=== PATIENT | female | born 1950 | race Caucasian/White ===

== ENCOUNTER 2016-04-24 11:42 | Emergency (ER) | payer MEDICARE, OTHER ==
[2016-04-24 11:46] VITALS: BP 128/68
--- NOTE | 2016-04-24 11:46 | EDM.PDOC ---
ED HPI ENT - General Chief Complaint: ENT Problem Stated Complaint: SORE THROAT Time Seen by Provider: 04/24/16 11:46 Source of Information: Reports: Patient, Family History Limitations: Reports: No limitations - History of Present Illness INITIAL COMMENTS - FREE TEXT/NARRATIVE: in with c/o sore throat and sinus congestion x 1 week was seen in [place] last week for same and is no better, no fever or chills, no cp or sob, no neck/back pain or stiffness, no ear sx, no abd pain, no nvdc, no rash Severity: mild Location: Reports: throat Quality: Reports: Ache Improves with: Reports: None Worsens with: Reports: Other (swallowing) Associated Symptoms: Denies: confusion, shortness of breath, weakness, chest pain, cough, fever/chills, nausea/vomiting, rash Treatments 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 Denies: fever, chills HEENT: Reports: Sinus problem, Throat pain. Denies: Ear discharge, Eye pain, Vertigo Respiratory: Reports: cough. Denies: shortness of breath Cardiovascular: Reports: No symptoms. Denies: Chest pain Endocrine: Reports: no symptoms GI/Abdominal: Reports: No symptoms. Denies: Abdominal pain, Nausea, Vomiting : Reports: no symptoms Musculoskeletal: Reports: no symptoms. Denies: neck pain, back pain, muscle pain Skin: Reports: no symptoms. Denies: rash Neurological: Reports: no symptoms Psychiatric: Reports: No symptoms Hematologic/Lymphatic: Reports: no symptoms Immunologic: Reports: no symptoms ED EXAM, ENT - Physical Exam Exam: See Below Exam Limited By: No limitations General Appearance: alert, WD/WN, no apparent distress Ears: normal external exam, normal canal, hearing grossly normal, normal TMs Nose: nasal discharge, nasal tenderness Mouth/Throat: Normal lips. No: Normal oropharynx (injected with drainage) Head: atraumatic, normocephalic Neck: normal inspection, supple, non-tender, full range of motion Respiratory/Chest: no respiratory distress, lungs clear, normal breath sounds Cardiovascular: normal peripheral pulses, regular rate, rhythm, no murmur GI/Abdominal: soft, non tender Back: normal inspection, full range of motion Extremities: normal inspection, normal range of motion, non-tender, no pedal edema, normal capillary refill Neurological: alert, oriented, normal cognition, normal gait, no motor/sensory deficits Psychiatric: normal affect, normal mood Skin: Warm, Dry, Intact, Normal color, No rash Lymphatic: no adenopathy Course - Vital Signs Last Recorded V/S: Last Vital Signs Temp 36.7 C 04/24/16 11:43 Pulse 65 04/24/16 11:43 Resp 16 04/24/16 11:43 BP 128/68 04/24/16 11:43 Pulse Ox 96 04/24/16 11:43 - Orders/Labs/Meds Orders: Active Orders 24 hr Category Date Time Status Dexamethasone Med 04/24/16 12:26 Once 10 mg IM ONETIME ONE cefTRIAXone [Rocephin] Med 04/24/16 12:25 Once 1 gm IM ONETIME ONE Departure - Departure Time of Disposition: 12:26 Disposition: Home, Self-Care 01 Condition: good Clinical Impression: Sinusitis, Pharyngitis Instructions: Sinusitis, Adult, [id number], Pharyngitis, [id number] Forms: ED Department Discharge Additional Instructions: increase fluids see family doctor this week to ER sooner if worse or problems or as needed - Problem List & Annotations (1) Pharyngitis SNOMED Code(s): 661494773 Code(s): J02.9 - ACUTE PHARYNGITIS, UNSPECIFIED Status: Acute Priority: High Onset Date: ~04/24/16 (2) Sinusitis SNOMED Code(s): 06254055 Code(s): J32.9 - CHRONIC SINUSITIS, UNSPECIFIED Status: Acute Priority: High Onset Date: ~04/24/16 Qualifiers: Sinusitis location: maxillary Chronicity: acute - Problem List Review Problem List Initiated/Reviewed/Updated: Yes - My Orders Last 24 Hours: My Active Orders 04/24/16 12:25 cefTRIAXone [Rocephin] 1 gm IM ONETIME ONE 04/24/16 12:26 Dexamethasone 10 mg IM ONETIME ONE - Assessment/Plan Last 24 Hours: My Active Orders 04/24/16 12:25 cefTRIAXone [Rocephin] 1 gm IM ONETIME ONE 04/24/16 12:26 Dexamethasone 10 mg IM ONETIME ONE
[2016-04-24] MEDS ORDERED: cefTRIAXone 1 GM Vial IM ONE (12:25)
[2016-04-24] MEDS ORDERED: Dexamethasone 4 MG/ML SDV IM ONE (12:26)
[2016-04-24] MEDS ORDERED: Lidocaine 1% 20 ML MDV ONE (12:28)
[2016-04-24] MEDS ORDERED: Dexamethasone 4 MG/ML SDV ONE (12:42)
== END 2016-04-24 12:45 | disposition home or self-care (01) ==
LOC: CC.ED 11:42
DX: J02.9 Acute pharyngitis, unspecified (principal); J32.9 Chronic sinusitis, unspecified
CPT/HCPCS: 87430; 96372; 99282; J0696; J1100

== ENCOUNTER 2016-06-29 15:04 | Emergency (ER) | payer MEDICARE, OTHER ==
[~2016-06-29 15:04] MED LIST: Ondansetron 4 MG Tab.DIS PO ONE
[2016-06-29 15:17] VITALS: BP 143/71
[2016-06-29] MEDS ORDERED: Ondansetron 8 MG in Sodium Chloride 0.9% 50 ML IV PRN (15:29)
[2016-06-29] MEDS ORDERED: Lactated Ringers 1,000 ML IV SCH (15:30)
[2016-06-29] MEDS ORDERED: Ondansetron 4 MG/2 ML SDV ONE (15:43)
[2016-06-29 16:04] LABS: CHLORIDE,CL 103 mEq/L (98-106); SODIUM,NA 140 mEq/L (136-145)
--- NOTE | 2016-06-29 17:51 | EDM.PDOC ---
ED HPI GENERAL MEDICAL PROBLEM - General Chief Complaint: General Stated Complaint: N/V, dizziness Time Seen by Provider: 06/29/16 15:55 Source of Information: Reports: Patient, Family History Limitations: Reports: No limitations - History of Present Illness INITIAL COMMENTS - FREE TEXT/NARRATIVE: Woke up this morning nauseated and felt faint. Did try to eat cereal but not much. Was worried that she ate some questionable pizza for last night as she didn't feel that it tasted right. No diarrhea with it. Did have a normal bowel movement today. After initial feeling sick then took a nap and states that she felt better for awhile and then started to get sick again and then complained of severe pain and dry heaves. Did call ambulance and had emesis in the ambulance and also again in the ER. Pain did get better and the nausea slowly improved after getting zofran. Onset: sudden Location: Reports: abdomen Quality: Reports: Sharp Improves with: Reports: Other (vomiting) Associated Symptoms: Reports: fever/chills, nausea/vomiting Abdominal Pain Score (Numeric/FACES): 5 - Related Data Allergies Allergy/AdvReac Type Severity Reaction Status Date / Time No Known Allergies Allergy Verified 06/29/16 15:19 Home Meds: Home Meds Alendronate [Fosamax] 70 mg PO SA 04/24/16 [History] Aspirin [Halfprin] 81 mg PO DAILY 06/29/16 [History] Biest(50-50)/Prog Hrv 1 applic TOP DAILY 06/29/16 [History] Brain Restore 4 tab PO TID 06/29/16 [History] Celepro 2 cap PO BID 06/29/16 [History] Cholecalciferol (Vitamin D3) [Vitamin D3] 1,000 unit PO DAILY 06/29/16 [History] Flaxseed Oil 1 cap PO DAILY 06/29/16 [History] Magnesium 1 tab PO DAILY 06/29/16 [History] Magtein 2 cap PO TID 06/29/16 [History] Mighty Cell 2 cap PO TID 06/29/16 [History] Vitamin B Complex & Vit C No.4 [Super B Complex] 1 tab PO DAILY 06/29/16 [ History] Vitamin B6-pyridOXINE 1 tab PO DAILY 06/29/16 [History] Past Medical History HEENT History: Reports: Allergic rhinitis Cardiovascular History: Reports: High cholesterol Genitourinary History: Reports: Other (see below) Other Genitourinary History: nocturia, hot flashes 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: , Spontaneous Musculoskeletal History: Reports: Arthritis, Osteoporosis Neurological History: Reports: Other (see below) Other Neuro History: frontal lobe disorder Psychiatric History: Reports: Other (see below) Other Psychiatric History: memory loss, history of psychotic episode Endocrine/Metabolic History: Reports: Vitamin D deficiency, Other (see below) Other Endocrine/Metabolic History: thyroid nodule - Past Surgical History Female Surgical History: Reports: Tubal ligation Neurological Surgical History: Reports: None Social & Family History - Family History Family Medical History: Noncontributory - Tobacco Use Smoking Status *Q: Never Smoker - Recreational Drug Use Recreational Drug Use: No ED ROS GENERAL - Review of Systems Review Of Systems: See Below Constitutional: Reports: chills, weakness HEENT: Reports: No symptoms Respiratory: Denies: Shortness of Breath, Cough Cardiovascular: Denies: Chest pain GI/Abdominal: Reports: Abdominal pain, Nausea, Vomiting. Denies: Constipation, Diarrhea : Reports: no symptoms Musculoskeletal: Reports: no symptoms Skin: Reports: no symptoms Neurological: Reports: No Symptoms Psychiatric: Reports: No symptoms ED EXAM, GENERAL - Physical Exam Exam: See Below Exam Limited By: No limitations General Appearance: alert, mild distress Ears: normal external exam, normal canal, normal TMs Ear Exam: bilateral ear: auricle normal, canal normal, TM normal Nose: normal inspection Throat/Mouth: Normal inspection, Normal oropharynx, Normal voice, No airway compromise Head: atraumatic, normocephalic Neck: normal inspection, supple, non-tender, full range of motion Respiratory/Chest: no respiratory distress, lungs clear, normal breath sounds, chest non-tender Cardiovascular: normal peripheral pulses, regular rate, rhythm, no murmur GI/Abdominal: Normal Bowel Sounds, Soft, Non-Tender (Not able to induce any discomfort when examined. She states that the pain went away.), No Organomegaly. No: Guarding, Rebound, Tender Extremities: normal inspection, normal range of motion, non-tender, normal capillary refill Neurological: alert, oriented Psychiatric: normal affect Skin Exam: Warm, Dry, Intact Course - Vital Signs Last Recorded V/S: Last Vital Signs Temp 98.1 F 06/29/16 15:10 Pulse 54 L 06/29/16 15:10 Resp 16 06/29/16 15:10 BP 143/71 H 06/29/16 15:10 Pulse Ox 99 06/29/16 15:10 - Orders/Labs/Meds Orders: Active Orders 24 hr Category Date Time Status Lactated Ringers [Ringers, Lactated] 1,000 ml Med 06/29/16 15:30 Active IV ASDIRECTED Ondansetron [Zofran] 8 mg Med 06/29/16 15:29 Active Sodium Chloride 0.9% [Normal Saline] 50 ml IV Q8H EKG 12 Lead [EK] Routine Ther 06/29/16 15:06 Ordered Medication Orders Lactated Ringer's (Ringers, Lactated) 1,000 mls @ 150 mls/hr IV ASDIRECTED ENRRIQUE Last Admin: 06/29/16 15:54 Dose: 150 mls/hr Ondansetron HCl 8 mg/ Sodium (Chloride) 54 mls @ 100 mls/hr IV Q8H PRN PRN Reason: Nausea Last Admin: 06/29/16 15:57 Dose: 100 mls/hr Labs: Laboratory Tests 06/29/16 06/29/16 06/29/16 Range/Units 15:35 15:35 16:23 WBC 10.9 H (5.0-10.0) 10^3/uL RBC 4.42 (4.00-5.50) 10^6/uL Hgb 13.5 (12.0-16.0) g/dL Hct 40.3 (37.0-47.0) % MCV 91.2 (82.0-94.0) fL MCH 30.5 (27.0-32.0) pg MCHC 33.5 (33.0-38.0) g/dL RDW Coeff of Barb 12.5 (11.0-15.0) % Plt Count 226 (150-400) 10^3/uL Neut % (Auto) 88.3 H (35-85) % Lymph % (Auto) 8.0 L (10-55) % [place] % (Auto) 3.4 (0-16) % Eos % (Auto) 0.1 (0-5) % Baso % (Auto) 0.2 (0-3) % Neut # (Auto) 9.62 H (1.80-7.00) 10^3/uL Lymph # (Auto) 0.87 L (1.00-4.80) 10^3/uL [place] # (Auto) 0.37 (0.00-0.80) 10^3/uL Eos # (Auto) 0.01 (0.00-0.45) 10^3/uL Baso # (Auto) 0.02 10^3/uL Sodium 140 (136-145) mEq/L Potassium 3.9 (3.5-5.0) mEq/L Chloride 103 (98-106) mEq/L Carbon Dioxide 28 (21-32) mmol/L BUN 14 (7-18) mg/dL Creatinine 0.9 (0.6-1.0) mg/dL Est Cr Clr Drug Dosing 48.63 mL/min Estimated GFR (MDRD) > 60 (>=60) mL/min Glucose 145 H D (75-99) mg/dL Calcium 8.5 (8.4-10.1) mg/dL Total Bilirubin 0.5 (0.0-1.0) mg/dL AST 14 L (15-37) U/L ALT 27 (12-78) U/L Alkaline Phosphatase 48 (46-116) U/L Total Protein 7.3 (6.4-8.2) g/dL Albumin 3.8 (3.4-5.0) g/dL Urine Color Yellow (YELLOW) Urine Appearance Slightly cloudy (CLEAR) Urine pH 7.5 (4.5-8.0) Ur Specific [place] 1.023 H (1.003-1.020) Urine Protein 100 H (NEGATIVE) mg/dL Urine Glucose (UA) Negative (NEGATIVE) mg/dL Urine Ketones 40 H (NEGATIVE) mg/dL Urine Occult Blood Negative (NEGATIVE) Urine Nitrite Negative (NEGATIVE) Urine Bilirubin Negative (NEGATIVE) Urine Urobilinogen 1.0 (0.2-1.0) EU/dL Ur Leukocyte Esterase Negative (NEGATIVE) Urine RBC 0-5 (0-5) /HPF Urine WBC Not seen (0-5) /HPF Ur Epithelial Cells Moderate H (NOT SEEN) /HPF Amorphous Sediment Moderate H (NOT SEEN) /HPF Meds: Medications Generic Name Dose Route Start Last Admin Trade Name Freq PRN Reason Stop Dose Admin Lactated Ringer's 1,000 mls @ 150 mls/hr 06/29/16 15:30 06/29/16 15:54 Ringers, Lactated IV 150 mls/hr ASDIRECTED ENRRIQUE Administration Ondansetron HCl 8 mg/ Sodium 54 mls @ 100 mls/hr 06/29/16 15:29 06/29/16 15: 57 Chloride IV 100 mls/hr Q8H PRN Administration Nausea Discontinued Medications Generic Name Dose Route Start Last Admin Trade Name Ja PRN Reason Stop Dose Admin Ondansetron HCl Confirm 06/29/16 15:43 06/29/16 15:56 Zofran Administered 06/29/16 15:44 Not Given Dose 4 mg .ROUTE .[facility] ONE - Re-Assessments/Exams Free Text/Narrative Re-Assessment/Exam: 06/29/16 17:55 In to visit with and pt and she is much improved and discussed normal labs. Will discharge home with Zofran. Departure - Departure Time of Disposition: 17:56 Disposition: Home, Self-Care 01 Condition: good Clinical Impression: Gastroenteritis - Discharge Information Forms: ED Department Discharge Additional Instructions: Slowly restart food and liquids as tolerated Zofran if needed for nausea Avoid milk and milk products until feeling back to normal for 24 hours Recheck if any new concerns noted. - Problem List & Annotations (1) Gastroenteritis SNOMED Code(s): 01086396 Code(s): K52.9 - NONINFECTIVE GASTROENTERITIS AND COLITIS, UNSPECIFIED Status: Acute Priority: High Current Visit: Yes - Problem List Review Problem List Initiated/Reviewed/Updated: Yes - My Orders Last 24 Hours: My Active Orders 06/29/16 15:06 EKG 12 Lead [EK] Routine 06/29/16 15:29 Ondansetron [Zofran] 8 mg Sodium Chloride 0.9% [Normal Saline] 50 ml IV Q8H 06/29/16 15:30 Lactated Ringers [Ringers, Lactated] 1,000 ml IV ASDIRECTED - Assessment/Plan Last 24 Hours: My Active Orders 06/29/16 15:06 EKG 12 Lead [EK] Routine 06/29/16 15:29 Ondansetron [Zofran] 8 mg Sodium Chloride 0.9% [Normal Saline] 50 ml IV Q8H 06/29/16 15:30 Lactated Ringers [Ringers, Lactated] 1,000 ml IV ASDIRECTED
[2016-06-29] MEDS ORDERED: Take Home: Ondansetron 4 MG Tab.DIS, 2 Tab Pack PO ONE (17:58)
== END 2016-06-29 18:40 | disposition home or self-care (01) ==
LOC: CC.ED 15:04
DX: K52.9 Noninfective gastroenteritis and colitis, unspecified (principal); E78.00 Pure hypercholesterolemia, unspecified; Z79.899 Other long term (current) drug therapy
CPT/HCPCS: 36415; 80053; 81001; 85025; 93005; 96361; 96365; 99284; A9270; J2405; J7050; J7120; 93010

== ENCOUNTER 2016-09-05 16:58 | Emergency (ER) | payer MEDICARE, OTHER ==
[~2016-09-05 16:58] MED LIST changes: +traMADol 50 MG Tab PO ONE
[2016-09-05] MEDS ORDERED: Sodium Chloride 0.9% 1,000 ML IV ONE (17:22)
[2016-09-05 17:23] VITALS: BP 120/65
[2016-09-05] MEDS ORDERED: HYDROmorphone 1 MG/ML Syringe IVPUSH ONE (17:23)
[2016-09-05] MEDS ORDERED: Promethazine 12.5 MG in Sodium Chloride 0.9% 50 ML IV ONE (17:24)
[2016-09-05] MEDS ORDERED: Ondansetron 4 MG/2 ML SDV IVPUSH ONE (18:00)
[2016-09-05] MEDS ORDERED: Take Home: traMADol 50 MG, 4 Tab Pack PO ONE (18:22)
[2016-09-05] MEDS ORDERED: Take Home: Ondansetron 4 MG Tab.DIS, 2 Tab Pack PO ONE (18:22)
--- NOTE | 2016-09-05 18:29 | EDM.PDOC ---
ED HPI GENERAL MEDICAL PROBLEM - General Chief Complaint: General Stated Complaint: HEADACHE/NAUSEA Time Seen by Provider: 09/05/16 17:17 Source of Information: Reports: Patient History Limitations: Reports: No Limitations - History of Present Illness INITIAL COMMENTS - FREE TEXT/NARRATIVE: Started feeling nauseated with a bad headach this morning about 2:30 Onset: Today Duration: Hour(s): Location: Reports: Head Severity: Moderate Associated Symptoms: Reports: No Other Symptoms Headache Pain Score (Numeric/FACES): 6 - Related Data Allergies Allergy/AdvReac Type Severity Reaction Status Date / Time No Known Allergies Allergy Verified 09/05/16 17:23 Home Meds: Home Meds Alendronate [Fosamax] 70 mg PO SA 04/24/16 [History] Aspirin [Halfprin] 81 mg PO DAILY 06/29/16 [History] Biest(50-50)/Prog Hrv 1 applic TOP DAILY 06/29/16 [History] Brain Restore 4 tab PO TID 06/29/16 [History] Celepro 2 cap PO BID 06/29/16 [History] Cholecalciferol (Vitamin D3) [Vitamin D3] 1,000 unit PO DAILY 06/29/16 [History] Flaxseed Oil 1 cap PO DAILY 06/29/16 [History] Magnesium 1 tab PO DAILY 06/29/16 [History] Magtein 2 cap PO TID 06/29/16 [History] Mighty Cell 2 cap PO TID 06/29/16 [History] Vitamin B Complex & Vit C No.4 [Super B Complex] 1 tab PO DAILY 06/29/16 [ History] Vitamin B6-pyridOXINE 1 tab PO DAILY 06/29/16 [History] Past Medical History HEENT History: Reports: Allergic Rhinitis Cardiovascular History: Reports: High Cholesterol Genitourinary History: Reports: Other (See Below) Other Genitourinary History: nocturia, hot flashes 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: , Spontaneous Musculoskeletal History: Reports: Arthritis, Osteoporosis Neurological History: Reports: Other (See Below) Other Neuro History: frontal lobe disorder Psychiatric History: Reports: Depression Other Psychiatric History: memory loss, history of psychotic episode Endocrine/Metabolic History: Reports: Vitamin D Deficiency, Other (See Below) Other Endocrine/Metabolic History: thyroid nodule - Infectious Disease History Infectious Disease History: Reports: Other (See Below) Other Infectious Disease History: lymes disease - Past Surgical History Female Surgical History: Reports: Tubal Ligation Social & Family History - Family History Family Medical History: Noncontributory - Tobacco Use Smoking Status *Q: Never Smoker - Recreational Drug Use Recreational Drug Use: No ED ROS GENERAL - Review of Systems Review Of Systems: ROS reveals no pertinent complaints other than HPI. ED EXAM, GENERAL - Physical Exam Exam: See Below Exam Limited By: No Limitations General Appearance: Alert, WD/WN Ears: Normal External Exam Nose: Normal Inspection Throat/Mouth: Normal Inspection Head: Atraumatic Neck: Normal Inspection Respiratory/Chest: No Respiratory Distress Cardiovascular: Normal Peripheral Pulses GI/Abdominal: Normal Bowel Sounds, Soft, Non-Tender, No Distention Back Exam: Normal Inspection Extremities: Normal Inspection Neurological: Alert Psychiatric: Normal Affect Skin Exam: Warm Course - Vital Signs Last Recorded V/S: Last Vital Signs Temp 98.7 F 09/05/16 17:17 Pulse 62 09/05/16 17:17 Resp 16 09/05/16 17:17 BP 120/65 09/05/16 17:17 Pulse Ox 98 09/05/16 17:17 - Orders/Labs/Meds Meds: Medications Discontinued Medications Generic Name Dose Route Start Last Admin Trade Name Jose Cq PRN Reason Stop Dose Admin Hydromorphone HCl 0.5 mg 09/05/16 17:23 09/05/16 17:49 Dilaudid IVPUSH 09/05/16 17:24 0.5 mg ONETIME ONE Administration Promethazine HCl 12.5 mg/ 50.5 mls @ 100 mls/hr 09/05/16 17:24 09/05/16 17:45 Sodium Chloride IV 09/05/16 17:54 100 mls/hr Q6H ONE Administration Sodium Chloride 1,000 mls @ 999 mls/hr 09/05/16 17:22 09/05/16 17:40 Normal Saline IV 09/05/16 18:22 999 mls/hr .BOLUS ONE Administration Ondansetron HCl 4 mg 09/05/16 18:00 09/05/16 18:04 Zofran IVPUSH 09/05/16 18:01 4 mg ONETIME ONE Administration Ondansetron HCl 2 packet 09/05/16 18:22 Take Home: Ondansetron Odt 4 Mg, 2 Tab Pack PO 09/05/16 18:23 ONETIME ONE Tramadol HCl 2 packet 09/05/16 18:22 Take Home: Tramadol 50 Mg, 4 Tab Pack PO 09/05/16 18:23 ONETIME ONE Departure - Departure Time of Disposition: 18:27 Disposition: Home, Self-Care 01 Clinical Impression: Headache, Nausea - Discharge Information Forms: ED Department Discharge Additional Instructions: Take your medications as prescribed. Follow up with your regular doctor as needed.
== END 2016-09-05 19:08 | disposition home or self-care (01) ==
LOC: CC.ED 16:58
DX: R51 Headache (principal); R11.0 Nausea; Z79.899 Other long term (current) drug therapy; E78.00 Pure hypercholesterolemia, unspecified; M19.90 Unspecified osteoarthritis, unspecified site; F32.9 Major depressive disorder, single episode, unspecified; Z98.51 Tubal ligation status; Z79.82 Long term (current) use of aspirin
CPT/HCPCS: 96365; 96375; 99283; A9270; J1170; J2405; J2550; J7030; J7050

== ENCOUNTER → 2017-03-03 | Day surgery (SDC) | payer MEDICARE, OTHER ==
[~2017-03-03] MED LIST changes: +Lactated Ringers 1,000 ML IV SCH; -Ondansetron 4 MG Tab.DIS PO ONE; +Propofol 200 MG/20 ML SDV IV ONE; -traMADol 50 MG Tab PO ONE
[2017-03-03 09:53] VITALS: BP 106/52
--- NOTE | 2017-03-03 13:58 | OR ---
DATE OF OPERATION: 03/03/2017 PREOPERATIVE DIAGNOSIS: POSITIVE COLOGUARD. POSTOPERATIVE DIAGNOSIS: POSITIVE COLOGUARD. SURGEON: Osiel Thornton MD PROCEDURE: FULL-LENGTH COLONOSCOPY. ANESTHESIA: INSTRUMENTAL MUSIC TEACHER due to dementia. COMPLICATIONS: None. SPECIMEN: None. FINDINGS: Full-length colonoscopy with extremely poor prep. RECOMMENDATIONS: Due to the positive Cologuard, the patient should seriously consider repeating her colonoscopy. INDICATIONS: The patient apparently need to go home with Cologuard which was positive. Dr. Gómez sent her for colonoscopy. DESCRIPTION OF PROCEDURE: The patient was prepped and draped, placed in left lateral decubitus position. A lubricated Olympus colonoscope was inserted and with significant amount of difficulty advanced to the cecum. The patient has a very poor prep with a lot of liquid stool which was very particulate. She had a lot of food matter in this and every time we suctioned, we got plugged. We had to run a wire down the scope about 10 times to unclog the scope just to get to the cecum and unfortunately all these areas could not be suctioned. At least 75% of the patient's colon cannot be visualized adequately to comfortably say this was a negative scope. I did come out slowly and tried to visualize and irrigate where I could find no signs of any obvious polyps, masses, ulcerations or bleeding sites. No vascular abnormalities or signs of colitis. The rectal vault appeared benign but there was so much volume of stool, it was hard to really say for sure. Retroflexion was accomplished and no perianal lesions were seen. Air was suctioned. Scope removed without complication. I do not believe this is an adequate evaluation to comfortably tell the patient this was a false-positive Cologuard. CRISTIANO/MONICA /[id number]
--- NOTE | 2017-03-03 14:02 | LETTER ---
03/03/2017 Jose Gómez MD [address] [facility] [address] [place] [address] RE: FLORA WALTON : [address] Gómez: Ms. Walotn just finished her colonoscopy. She had a very poor prep and I could not suction the areas, the scope kept getting plugged. This is absolutely not adequate to rule out pathology for her positive Cologuard. She will need to consider repeat procedure if she desires. Thanks a lot. CRISTIANO/MONICA /[id number]
== END ==
LOC: CC.SDS 08:18
PROVIDERS: ATTEND Family Medicine
DX: R19.5 Other fecal abnormalities (principal); F41.8 Other specified anxiety disorders; E78.5 Hyperlipidemia, unspecified; J30.2 Other seasonal allergic rhinitis; E55.9 Vitamin D deficiency, unspecified; F03.90 Unspecified dementia, unspecified severity, without behavioral disturbance, psychotic disturbance, mood disturbance, and anxiety; Z79.82 Long term (current) use of aspirin; Z79.899 Other long term (current) drug therapy
CPT/HCPCS: 00812; G0121; J2704; J7120

== ENCOUNTER → 2017-10-31 | Day surgery (SDC) | payer MEDICARE, OTHER ==
[~2017-10-31] MED LIST changes: -Lactated Ringers 1,000 ML IV SCH; +Lidocaine 1% 20 ML MDV ONE; -Propofol 200 MG/20 ML SDV IV ONE
[2017-10-31 08:23] VITALS: BP 108/58
--- NOTE | 2017-11-01 08:58 | OR ---
DATE OF OPERATION: 10/31/2017 PREOPERATIVE DIAGNOSIS: VARICOSE VEINS WITH DOCUMENTED VENOUS INSUFFICIENCY. POSTOPERATIVE DIAGNOSIS: VARICOSE VEINS WITH DOCUMENTED VENOUS INSUFFICIENCY. SURGEON: Osiel Thornton MD PROCEDURE: ENDOVENOUS ABLATION OF RIGHT GREAT SAPHENOUS VEIN. COMPLICATIONS: None. SPECIMEN: None. FINDINGS: Successful endovenous ablation of right great saphenous vein.. INDICATIONS: The patient has painful varicosities symptomatic with documented venous insufficiency. She elects to proceed with endovenous ablation, right GSV. DESCRIPTION OF PROCEDURE: The patient was prepped and draped in the operating room suite and the insufficient saphenous vein diagrammed and mapped on the overlying skin via ultrasound. The entire limb was sterile. The patient was placed in reverse Trendelenburg position. Local anesthesia was instilled at the access site down around the calf. The vein was accessed using ultrasound guidance and Seldinger technique with a guidewire introduced through the needle. Exchanged over the guidewire for a 6-Nepalese sheath after a small incision was made with an 11 blade scalpel. This sheath was held in place by skin tension. Guidewire was removed. The sheath was flushed. The radiofrequency probe was placed into the vein through the sheath and positioned approximately 1.8 cm distal to the saphenofemoral junction under ultrasound guidance. We preferentially tried to keep the tip of the catheter inferior to the superficial epigastric vein to preserve flow. After probe position verified via ultrasound, tumescent anesthesia was infiltrated under ultrasound guidance, precisely into the perivenous compartment along the length of the vein from the entry point to the saphenofemoral junction until a halo of fluid was noted around the vein. The patient was placed back in Trendelenburg position to exsanguinate the superficial venous system. Radiofrequency probe position confirmed via ultrasound and under direct external compression along the length of the heating element, radiofrequency energy was applied. The vein was ablated heating a 7 cm segment, indexing the catheter forward 6.5 cm until treatment length complete. Device temperature was maintained at 120 degrees Celsius with an initial power level of 40 W, dropping to below 20 for each treatment. Total radiofrequency treatment time was 3 minutes and 20 seconds with 10 radiofrequency cycles. Ultrasound confirmed successful treatment. The catheter and sheath were withdrawn and hemostasis was achieved with direct pressure. Skin incision over the saphenous vein was closed with a bandage and compression wrap from the level of the foot to the groin. A total of 550 mL of tumescent was used. The patient was stable in the recovery room. CRISTIANO/MONICA /[id number]
== END ==
LOC: CC.SDS 06:31
PROVIDERS: ATTEND Family Medicine
DX: I83.811 Varicose veins of right lower extremity with pain (principal); I87.2 Venous insufficiency (chronic) (peripheral)
CPT/HCPCS: A4216